=== PATIENT | male | born 1975 | race Caucasian/White ===

== ENCOUNTER 2017-08-06 11:48 | Emergency (ER) | payer OTHER ==
[~2017-08-06] VITALS: Ht 180.3 cm; Wt 158.8 kg
[~2017-08-06 11:48] MED LIST: ACCUPRIL40 MG; ACETAMINOPHEN-1 EAC1 PO; ADULT LOW DOSE81 MG PO; ADVAIR 250-501 EACH; ADVAIR 250-501 EACH INH; ALBUTEROL INH; AMITRIPTYLINE H25 M2 PO; AMLODIPINE PO; AMOXICILLIN 50500 MG PO; AMOXICILLIN500 M1 PO; APAP650 PO; AUGMENTIN 875-1 EACH PO; AZITHROMYCIN 2250 MG PO; BACTRIM DS TAB1 EACH PO; CELEBREX; CIPROFLOXACIN500 M1 PO; COLACE100 MG PO; CRESTOR5 MG; FLAGYL500 MG PO; FLEXERIL PO; FUROSEMIDE 40 M40 M1; GLUCOPHAGE1000 MG PO; GRALISE600 MG PO; HUMALOG100 UNIT/1 SUBQ; HUMALOG100 UNIT/2; HYDROCHLOROTHIA25 M2 PO; HYDROCODONE-AP1 EAC6 PO; HYDROCODONE-APA1 TA1 PO; HYDROCORTISONE30 G9 RECTAL; IBUPROFEN 800800 M1 PO; IBUPROFEN 800800 MG PO; JANUMET 50-1,01 EACH PO; KEFLEX500 MG PO; LANTUS100 UNIT/M SUBQ; LASIX 20 MG TAB20 MG PO; LASIX PO; LEVEMIR100 UNIT/1 SUBQ; LIPITOR10 MG PO; LISINOPRIL-HCT1 EAC1 PO; LISINOPRIL40 MG PO; LISINOPRIL5 MG PO; LOPRESSOR; LOVASTAT40 PO; MEDROLDOSEPACK PO; MELATONIN1 MG PO; METFORMIN HCL500 MG PO; METFORMIN PO; NEURONTIN 400400 M1 PO; NOHOMEMEDICATIONS; NORCO 5-325 TA1 EACH PO; NORVASC10 MG; NOVOLOG100 UNIT/1 SUBQ; OXYCODONE HCL15 MG; PENICILLIN VK500 M1; PENICILLIN VK500 M1 PO; PENICILLIN VK500 MG PO; PERCOCET 5-3251 EACH PO; PERCOCET PO; PERIDEX 0.12%473 M1 SSP; PRINIVIL; PROVENTIL IN; RECTIV30 GM RC; SIMVASTATIN20 MG; SINGULAIR 10 MG10 M1; SPIRIVA; SYMBICORT160 MCG/4.; TESSALON200 MG PO; TOPROL XL200 MG; TOPROL XL25 MG PO; TOPROL XL50 MG PO; TRAMADOL 50 MG50 MG PO; VENTOLIN HFA 1818 GM INH; VENTOLIN17 GM INH; VICODIN 5-5001 EACH PO; ZANAFLEX4 MG PO
[2017-08-06 12:17] LABS: ABSOLUTE EOSINOPHILS 0.3 thou/uL (0.0-0.7); ABSOLUTE LYMPHOCYTES 2.2 thou/uL (0.8-5.3); ABSOLUTE MONOCYTES 0.2 thou/uL (0.0-1.2); ABSOLUTE NEUTROPHILS 3.5 thou/uL (1.6-8.1); BASOPHILS 0.4 %; HEMOGLOBIN 12.8 gm/dL (14.0-18.0); LYMPHOCYTES 35.2 %; MCH 28.1 pg (26.0-34.0); MCHC 32.9 g/dL (28.0-37.0); MCV 85.3 fL (80.0-100.0); MONOCYTES 3.9 %; MPV 9.2 fl. (7.2-11.1); NUCLEATED RBCS 0 /100WBC; PLATELET COUNT* 118 thou/uL (150-400); POLYS 55.5 %; RBC 4.56 mil/uL (4.50-6.00); RDW-CV 14.5 % (10.5-14.5); WBC 6.4 thou/uL (4.0-11.0)
[2017-08-06 12:21] LABS: ANION GAP 7 mmol/L (7-16); BUN 11 mg/dL (7-18); CALCIUM 8.3 mg/dL (8.5-10.1); CHLORIDE 96 mmol/L (98-107); CO2 31 mmol/L (21-32); CREATININE 1.2 mg/dL (0.6-1.3); GLUCOSE 367 mg/dL (70-99); POTASSIUM 4.6 mmol/L (3.5-5.1); SODIUM 134 mmol/L (136-145)
[2017-08-06 12:32] LABS: ALBUMIN 2.9 g/dL (3.4-5.0); ALKALINE PHOSPHATASE 89 U/L (46-116); LIPASE 165 U/L (73-393); NT-PRO BRAIN NAT PEPTIDE 124 pg/mL (<300); SGOT 35 U/L (15-37); SGPT 34 U/L (30-65); TOTAL BILIRUBIN 0.2 mg/dL (<0.1-1.0); TOTAL PROTEIN 6.5 g/dL (6.4-8.2); TROPONIN-I LEVEL <0.06 ng/mL (<0.06)
[2017-08-06 14:07] VITALS: BP 112/55
--- NOTE | 2017-08-06 17:31 | EKG ---
[place] [address] ELECTROCARDIOGRAM REPORT Name: MELISA HERMAN Room: [facility] [id number] Admission: 08/06/17 Attend Phys: Discharge: 08/06/17 Date of : 71 Report #: [id number] THIS REPORT FOR: //name// [facility] ED Test Date: 2017-08-06 Test Time: 12:15:31 Pat Name: MELISA HERMAN Department: Room: Gender: M Knuckler: : 1975 Requested By: Dejan Salcedo Order Number: [id number] MD: Axel Theodore Measurements Intervals [place] Rate: 76 P: 46 MN: 137 QRS: 20 QRSD: 110 T: 41 QT: 398 QTc: 448 Interpretive Statements Sinus rhythm Compared to ECG 01/02/2016 12:01:06 no change Electronically Signed On 08-06-2017 17:31:12 WEIGHER PACKING by Axel Theodore [email or web address] <ELECTRONICALLY SIGNED> By: Axel Theodore MD, [facility] 08/06/17 1731 1215 1215 Axel Theodore MD, FACC /EPI
== END 2017-08-06 14:08 | disposition home or self-care (01) ==
LOC: M.ERS 11:48
PROVIDERS: Emergency Medicine
DX: T40.2X1A Poisoning by other opioids, accidental (unintentional), initial encounter (principal); T38.3X1A Poisoning by insulin and oral hypoglycemic [antidiabetic] drugs, accidental (unintentional), initial encounter; K21.9 Gastro-esophageal reflux disease without esophagitis; J45.909 Unspecified asthma, uncomplicated; M19.90 Unspecified osteoarthritis, unspecified site; J44.9 Chronic obstructive pulmonary disease, unspecified; E11.40 Type 2 diabetes mellitus with diabetic neuropathy, unspecified; F17.210 Nicotine dependence, cigarettes, uncomplicated; Z79.4 Long term (current) use of insulin; Y92.89 Other specified places as the place of occurrence of the external cause

== ENCOUNTER → 2017-08-23 | Outpatient (CLI) | payer OTHER ==
[~2017-08-23] MED LIST changes: +ERYTHROMYCIN250 MG PO; +NABUMETONE 750750 M1 PO; +TRESIBA FL100 UNIT/1 SUBQ; +VICTOZA0.6 MG/0.1 SUBQ
== END ==
LOC: M.RAD 13:48
DX: M25.462 Effusion, left knee (principal)

== ENCOUNTER → 2017-10-06 | Outpatient (CLI) | payer OTHER | LOC: M.ULTRA 15:00 | DX: I73.9 Peripheral vascular disease, unspecified (principal); E11.65 Type 2 diabetes mellitus with hyperglycemia; I10 Essential (primary) hypertension; E78.5 Hyperlipidemia, unspecified ==

== ENCOUNTER 2018-01-11 18:46 | Inpatient (IN) | payer OTHER, MEDICAID ==
[~2018-01-11] VITALS: Ht 180.3 cm; Wt 138.3 kg
[~2018-01-11 18:46] MED LIST changes: -ERYTHROMYCIN250 MG PO; -NABUMETONE 750750 M1 PO; -TRESIBA FL100 UNIT/1 SUBQ; -VICTOZA0.6 MG/0.1 SUBQ
[2018-01-11 18:53] VITALS: BP 111/74
[2018-01-11] MEDS ORDERED: VICTOZA0.6 MG/0.1 SUBQ (18:58)
[2018-01-11] MEDS ORDERED: TRESIBA FL100 UNIT/1 SUBQ (18:59)
[2018-01-11 19:23] LABS: ABSOLUTE EOSINOPHILS 0.3 thou/uL (0.0-0.7); ABSOLUTE LYMPHOCYTES 2.4 thou/uL (0.8-5.3); ABSOLUTE MONOCYTES 0.4 thou/uL (0.0-1.2); ABSOLUTE NEUTROPHILS 4.8 thou/uL (1.6-8.1); BASOPHILS 0.6 %; EOSINOPHILS 3.7 %; HEMATOCRIT 40.5 % (42.0-52.0); HEMOGLOBIN 13.4 gm/dL (14.0-18.0); LYMPHOCYTES 30.2 %; MCH 27.7 pg (26.0-34.0); MCHC 33.1 g/dL (28.0-37.0); MCV 83.7 fL (80.0-100.0); MONOCYTES 4.7 %; MPV 8.5 fl. (7.2-11.1); NUCLEATED RBCS 0 /100WBC; PLATELET COUNT* 176 thou/uL (150-400); POLYS 60.8 %; RBC 4.84 mil/uL (4.50-6.00); RDW-CV 14.6 % (10.5-14.5); WBC 7.8 thou/uL (4.0-11.0)
[2018-01-11 19:44] LABS: ANION GAP 2 mmol/L (7-16); BUN 14 mg/dL (7-18); CALCIUM 8.8 mg/dL (8.5-10.1); CHLORIDE 94 mmol/L (98-107); CO2 34 mmol/L (21-32); CREATININE 1.1 mg/dL (0.6-1.3); GLUCOSE 206 mg/dL (70-99); SODIUM 130 mmol/L (136-145)
[2018-01-11 19:58] LABS: ALKALINE PHOSPHATASE 82 U/L (46-116); AMYLASE 25 U/L (25-115); CK-MB MASS 0.7 ng/mL (<0.5-3.6); LIPASE 175 U/L (73-393); SGOT 23 U/L (15-37); SGPT 26 U/L (30-65); TOTAL BILIRUBIN 0.4 mg/dL (<0.1-1.0); TOTAL PROTEIN 7.2 g/dL (6.4-8.2); TROPONIN-I LEVEL <0.06 ng/mL (<0.06)
[2018-01-11 20:52] LABS: URINE BILIRUBIN NEGATIVE (Negative); URINE BLOOD NEGATIVE (Negative); URINE CLARITY CLEAR; URINE COLOR YELLOW; URINE GLUCOSE-RANDOM NEGATIVE (Negative); URINE KETONES NEGATIVE (Negative); URINE LEUKOCYTES-REFLEX NEGATIVE (Negative); URINE NITRITE-REFLEX NEGATIVE (Negative); URINE PROTEIN NEGATIVE (Negative); URINE SPECIFIC GRAVITY <= 1.005 (1.005-1.030); URINE UROBILINOGEN 0.2 E.U./dl (0.2-1.0)
--- NOTE | 2018-01-11 22:20 | NUR ---
RESIDENT TO EVALUATE
[2018-01-11 23:30] VITALS: BP 130/71
--- NOTE | 2018-01-11 23:30 | NUR ---
PATIENT ARRIVED ON UNIT AT 2320. TRANSFERED TO UNIT BED WITH STANDBY ASSIST. ORIENTED TO UNIT. VITAL SIGNS STABLE ON 2 LITERS OF OXYGEN. ASSESSMENT COMPLETE CHARTED. NURSING WILL CONTINUE TO MONITOR.
[2018-01-11 23:33] VITALS: BP 157/98
--- NOTE | 2018-01-12 04:34 | NUR ---
PATIENT REMAINS ALERT AND ORIENTED X4 THROUGHOUT SHIFT. VITAL SIGNS STABLE ON 2 LITERS OF OXYGEN PER NASAL CANULA. IV PATENT IN THE RIGHT AC INFUSING AT 50 ML/HR PER ORDERS. MAINTAINED NPO STATUS SINCE MIDNIGHT. REPOSITIONING SELF IN BED. TRANSFERS WITH STANDBY ASSIST TO THE RESTROOM. PAIN MANAGED WITH IV MEDICATION. DENIES NAUSEA. HOURLY ROUNDING COMPLETE. FALL PRECAUTIONS IN PLACE. CALL LIGHT WITHIN REACH. NURSING WILL CONTINUE TO MONITOR.
[2018-01-12 04:42] LABS: ABSOLUTE EOSINOPHILS 0.3 thou/uL (0.0-0.7); ABSOLUTE LYMPHOCYTES 2.5 thou/uL (0.8-5.3); ABSOLUTE MONOCYTES 0.4 thou/uL (0.0-1.2); ABSOLUTE NEUTROPHILS 4.8 thou/uL (1.6-8.1); BASOPHILS 0.5 %; HEMATOCRIT 39.6 % (42.0-52.0); HEMOGLOBIN 13.1 gm/dL (14.0-18.0); LYMPHOCYTES 30.8 %; MCH 27.7 pg (26.0-34.0); MCHC 33.1 g/dL (28.0-37.0); MCV 83.8 fL (80.0-100.0); MONOCYTES 4.9 %; NUCLEATED RBCS 0 /100WBC; PLATELET COUNT* 160 thou/uL (150-400); POLYS 59.8 %; RBC 4.73 mil/uL (4.50-6.00); WBC 8.1 thou/uL (4.0-11.0)
[2018-01-12 04:57] LABS: CALCIUM 8.2 mg/dL (8.5-10.1); CREATININE 1.1 mg/dL (0.6-1.3); POTASSIUM 4.4 mmol/L (3.5-5.1)
[2018-01-12 05:06] LABS: TOTAL BILIRUBIN 0.2 mg/dL (<0.1-1.0); TOTAL PROTEIN 6.4 g/dL (6.4-8.2)
[2018-01-12 09:15] VITALS: BP 148/88
[2018-01-12 10:26] LABS: CALCIUM 8.5 mg/dL (8.5-10.1); CREATININE 1.1 mg/dL (0.6-1.3); MAGNESIUM 1.4 mg/dL (1.8-2.4); POTASSIUM 4.3 mmol/L (3.5-5.1)
--- NOTE | 2018-01-12 11:16 | NUR ---
Nutrition: Pt assessed for Consult received for "wt change." PMHx: DM II, COPD, HTN, GERD. Admitted with abd pain. RX: insulin, linagliptin. Labs: BG 180, alb 3, Na 133. NPO. Pt not in room at time of visit, 11:00. 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 Noted, per [employer], that he has weighed ~340# for the past two yrs. Today's wt is 305#. Questioning accuracy of today's wt. Please reweigh for accurate wt. Mild risk. RD to follow up on wt, diet advancement, labs 01/14/18.
--- NOTE | 2018-01-12 12:46 | EKG ---
[place] [address] ELECTROCARDIOGRAM REPORT Name: MELISA HERMAN Room: [address] IN [facility]#: [id number] Admission: 01/11/18 Attend Phys: Gayathri Venegsa MD Discharge: Date of : 71 Report #: [id number] THIS REPORT FOR: //name// [facility] ED Test Date: 2018-01-11 Test Time: 19:28:20 Pat Name: MELISA HERMAN Department: Room: Gender: M [employer] Member: JEB : 1975 Requested By: Rebecca Ervin Order Number: [id number] MD: Axel Theodore Measurements Intervals [place] Rate: 88 P: 46 ND: 134 QRS: 32 QRSD: 105 T: 53 QT: 378 QTc: 458 Interpretive Statements Sinus rhythm Compared to ECG 08/06/2017 12:15:31 No significant changes Electronically Signed On 01-12-2018 12:46:04 CDT by Axel Theodore [email or web address] <ELECTRONICALLY SIGNED> By: Axel Theodore MD, [facility] 01/12/18 1246 1928 27 Axel Theodore MD, FACC /EPI
--- NOTE | 2018-01-12 16:46 | NUR ---
ATTEMPTED TO SEE PT. HE WAS OUT OF ROOM FOR TEST. WILL SEE IN AM.
[2018-01-12 16:57] VITALS: BP 129/72
--- NOTE | 2018-01-12 17:10 | NUR ---
ASSUMED CARE OF PATIENT AFTER MORNING REPORT AT 0720. ALERT AND ORIENTED X4.ASSESSMENT COMPLETED AND CHARTED. VSS ON 2 LITERS 02. PATIENT HAS FREQUENT COMPLAINTS OF PAIN RATED FROM 7 TO 10. NO COMPLAINTS OF NAUSEA OR SOA THIS SHIFT. PATIENT OBSERVED RESTING COMFORTABLY IN BED UPON HOURLY ROUNDS. PATIENT COMPLETED A SMALL BOWEL SERIES THIS AFTERNOON AND ADVNACED TO FULL LIQUID DIET, TOLERATING DIET WELL. HOURLY ROUNDS MAINTAINED, CALL LIGHT IS WITHIN REACH, NURSING WILL CONTINUE TO MONITOR.
[2018-01-12 19:40] VITALS: BP 104/51
[2018-01-13 04:30] LABS: HEMATOCRIT 35.9 % (42.0-52.0); HEMOGLOBIN 11.8 gm/dL (14.0-18.0); MCH 27.8 pg (26.0-34.0); MCHC 32.9 g/dL (28.0-37.0); MCV 84.5 fL (80.0-100.0); RBC 4.25 mil/uL (4.50-6.00); RDW-CV 15.3 % (10.5-14.5); WBC 10.3 thou/uL (4.0-11.0)
--- NOTE | 2018-01-13 04:48 | NUR ---
RESTED WELL THROUGHOUT HOURLY ROUNDS, CONITINUE TO C/O ABD PAIN DENIES . UP WALKING IN HALLWAY. BLOOD GLUCOSE 170 INSULIN GIVEN PRESCRIBED. DISCUSSED PLAN OF CARE PT AGREEABLE AND VERBALIZED UNDERSTANDING.
--- NOTE | 2018-01-13 05:36 | NUR ---
AGREE WITH ALL CHARTING BY NATASHA OLMEDO.
[2018-01-13 05:49] LABS: ALBUMIN 2.9 g/dL (3.4-5.0); CALCIUM 8.5 mg/dL (8.5-10.1); CREATININE 1.5 mg/dL (0.6-1.3); MAGNESIUM 1.7 mg/dL (1.8-2.4); PHOSPHORUS* 5.6 mg/dL (2.5-4.9); POTASSIUM 4.4 mmol/L (3.5-5.1); TOTAL BILIRUBIN 0.3 mg/dL (<0.1-1.0); TOTAL PROTEIN 6.1 g/dL (6.4-8.2)
[2018-01-13 09:37] VITALS: BP 103/67
--- NOTE | 2018-01-13 15:54 | NUR ---
PT.UP IN WC IN ROOM. ALERT AND ORIENTED. STATED HE LIVES BY HIMSELF. HIS MOM LIVES IN SAME APT.COMPLEX. SHE AND EXTENDED FAMILY IS SUPPORTIVE. HE HAS O2 AT HOME. NORMALLY USES IT AT NIGHT WITH HIS CPAP. HE SAID HE IS INDEPENDENT WITH ADLS,ETC. ABLE TO COOK,DRIVE,ETC. HE JUST WANTS TO FIND OUT WHAT IS CAUSING HIS PAIN. CM TO BE AVAILABLE NEEDED.
[2018-01-13 16:00] VITALS: BP 110/69
[2018-01-13 16:40] VITALS: BP 110/69
[2018-01-13] MEDS ORDERED: ERYTHROMYCIN250 MG PO (17:04)
--- NOTE | 2018-01-13 17:18 | NUR ---
ASSUMED CARE OF PATIENT AFTER MORNING REPORT. ALERT AND ORIENTED X4. ASSESSMENT COMPLETED AND CHARTED. VSS ON ROOM AIR WITH 2 LITERS 02 IF NEEDED. VSS ON ROOM AIR, PPATIENT WAS NOT WEARING HIS 02. NO COMPLAINTS OF NAUSEA OR SOA. PAIN HAS BEEN MANAGED WITH PAIN MEDICATION. PATIENT CLEARED FOR DISCHARGE AFTER A GASTRIC EMPTYING STUDY RESULTS CAME BACK OK. PATIENT DISCHARGED AT 1715, ALL PERSONAL BELONGINGS, PRESCRIPTIONS AND DISCHARGE INFORMATION SENT WITH PATIENT.
== END 2018-01-13 17:15 | disposition home or self-care (01) | DRG 73 ==
LOC: M.ERS 18:46 → M.ORTHSURG 22:37 → M.TBA-ER 22:37 → M.ORTHSURG 23:48
PROVIDERS: Internal Medicine; Nurse Practitioner Family; ADMIT Internal Medicine
DX: E11.43 Type 2 diabetes mellitus with diabetic autonomic (poly)neuropathy (principal); N17.0 Acute kidney failure with tubular necrosis; E87.1 Hypo-osmolality and hyponatremia; Z68.41 Body mass index [BMI] 40.0-44.9, adult; K31.84 Gastroparesis; E66.01 Morbid (severe) obesity due to excess calories; M19.90 Unspecified osteoarthritis, unspecified site; J44.9 Chronic obstructive pulmonary disease, unspecified; E11.22 Type 2 diabetes mellitus with diabetic chronic kidney disease; K21.9 Gastro-esophageal reflux disease without esophagitis; I12.9 Hypertensive chronic kidney disease with stage 1 through stage 4 chronic kidney disease, or unspecified chronic kidney disease; J32.8 Other chronic sinusitis; G47.33 Obstructive sleep apnea (adult) (pediatric); F17.210 Nicotine dependence, cigarettes, uncomplicated; N18.3 Chronic kidney disease, stage 3 (moderate); Z82.49 Family history of ischemic heart disease and other diseases of the circulatory system; Z83.6 Family history of other diseases of the respiratory system; Z84.1 Family history of disorders of kidney and ureter

== ENCOUNTER 2018-02-03 14:26 | Emergency (ER) | payer OTHER, MEDICAID ==
[~2018-02-03] VITALS: Ht 180.3 cm; Wt 149.7 kg
[~2018-02-03 14:26] MED LIST changes: +ERYTHROMYCIN250 MG PO; +TRESIBA FL100 UNIT/1 SUBQ; +VICTOZA0.6 MG/0.1 SUBQ
[2018-02-03] MEDS ORDERED: NABUMETONE 750750 M1 PO (16:22)
[2018-02-03 17:05] VITALS: BP 175/81
== END 2018-02-03 17:06 | disposition home or self-care (01) ==
LOC: M.ERS 14:26
DX: M25.571 Pain in right ankle and joints of right foot (principal); M79.671 Pain in right foot; J44.9 Chronic obstructive pulmonary disease, unspecified; G47.30 Sleep apnea, unspecified; E11.40 Type 2 diabetes mellitus with diabetic neuropathy, unspecified; K21.9 Gastro-esophageal reflux disease without esophagitis; G25.81 Restless legs syndrome; Z98.890 Other specified postprocedural states; F17.210 Nicotine dependence, cigarettes, uncomplicated; Z79.4 Long term (current) use of insulin

== ENCOUNTER 2018-05-16 02:44 | Emergency (ER) | payer OTHER, MEDICAID ==
[~2018-05-16] VITALS: Ht 180.3 cm; Wt 152.9 kg
[~2018-05-16 02:44] MED LIST changes: +NABUMETONE 750750 M1 PO
[2018-05-16 03:20] LABS: HEMOGLOBIN 13.1 gm/dL (14.0-18.0); NUCLEATED RBCS 0 /100WBC
[2018-05-16 03:22] LABS: ABSOLUTE MONOCYTES 0.5 thou/uL (0.0-1.2); MONOCYTES 5.3 %
[2018-05-16 03:26] LABS: ABSOLUTE BASOPHILS 0.1 thou/uL (0.0-0.2); ABSOLUTE EOSINOPHILS 0.2 thou/uL (0.0-0.7); ABSOLUTE LYMPHOCYTES 2.9 thou/uL (0.8-5.3); ABSOLUTE NEUTROPHILS 5.6 thou/uL (1.6-8.1); BASOPHILS 0.8 %; EOSINOPHILS 2.5 %; HEMATOCRIT 39.2 % (42.0-52.0); LYMPHOCYTES 31.1 %; MCH 28.1 pg (26.0-34.0); MCHC 33.3 g/dL (28.0-37.0); MCV 84.4 fL (80.0-100.0); MPV 9.2 fl. (7.2-11.1); PLATELET COUNT* 140 thou/uL (150-400); POLYS 60.3 %; RBC 4.65 mil/uL (4.50-6.00); RDW-CV 14.7 % (10.5-14.5); WBC 9.2 thou/uL (4.0-11.0)
[2018-05-16 03:27] LABS: CALCIUM 8.7 mg/dL (8.5-10.1); CREATININE 1.2 mg/dL (0.6-1.3); POTASSIUM 3.4 mmol/L (3.5-5.1)
[2018-05-16 03:38] LABS: ALBUMIN 3.1 g/dL (3.4-5.0); TOTAL BILIRUBIN 0.3 mg/dL (<0.1-1.0)
[2018-05-16 04:25] VITALS: BP 139/78
== END 2018-05-16 04:25 | disposition home or self-care (01) ==
LOC: M.ERS 02:44
PROVIDERS: Family Medicine
DX: E11.40 Type 2 diabetes mellitus with diabetic neuropathy, unspecified (principal); J44.9 Chronic obstructive pulmonary disease, unspecified; G47.30 Sleep apnea, unspecified; M19.90 Unspecified osteoarthritis, unspecified site; K21.9 Gastro-esophageal reflux disease without esophagitis; G25.81 Restless legs syndrome; Z79.4 Long term (current) use of insulin

== ENCOUNTER → 2021-03-07 | Outpatient (CLI) | payer OTHER, MEDICAID ==
[~2021-03-07] VITALS: Ht 180.3 cm; Wt 149.7 kg
[~2021-03-07] MED LIST changes: +FUROSEMIDE 20 M20 MG PO; +GLUMETZA1000 M1 PO; +KLOR-CON M2020 MEQ PO; +NEURONTIN800 MG PO; +NOVOLOG100 UNIT/M SUBQ; +OXYCONTIN15 MG PO; +SIMVASTATIN80 MG PO; +ZOCOR 20 MG TAB20 M1 PO
[2021-03-07 11:45] VITALS: BP 113/68; BP 117/65
[2021-03-07 11:49] LABS: HEMATOCRIT 37.4 % (42.0-52.0); HEMOGLOBIN 12.5 gm/dL (14.0-18.0); MCH 27.9 pg (26.0-34.0); MCHC 33.4 g/dL (28.0-37.0); MCV 83.7 fL (80.0-100.0); MPV 8.8 fl. (7.2-11.1); RBC 4.47 mil/uL (4.50-6.00); WBC 9.6 thou/uL (4.0-11.0)
[2021-03-07 11:59] LABS: CALCIUM 9.2 mg/dL (8.5-10.1); CREATININE 1.4 mg/dL (0.6-1.3); POTASSIUM 5.6 mmol/L (3.5-5.1)
[2021-03-07 12:01] LABS: PROTIME 10.9 Seconds (9.20-11.50)
[2021-03-07 14:29] VITALS: BP 125/67
[2021-03-07 14:43] VITALS: BP 119/67
[2021-03-07 14:56] VITALS: BP 134/78
== END | disposition home or self-care (01) ==
LOC: M.INT 10:21
PROVIDERS: Radiology Vascular & Interventional Radiology; ATTEND Radiology Radiation Oncology
DX: Z43.1 Encounter for attention to gastrostomy (principal); C10.1 Malignant neoplasm of anterior surface of epiglottis; I10 Essential (primary) hypertension; E11.9 Type 2 diabetes mellitus without complications; J44.9 Chronic obstructive pulmonary disease, unspecified; M19.90 Unspecified osteoarthritis, unspecified site; K21.9 Gastro-esophageal reflux disease without esophagitis; E66.9 Obesity, unspecified; F17.210 Nicotine dependence, cigarettes, uncomplicated; Z98.890 Other specified postprocedural states; Z79.899 Other long term (current) drug therapy; Z79.4 Long term (current) use of insulin

== ENCOUNTER 2021-04-14 16:22 | Observation (INO) | payer OTHER, MEDICAID ==
[~2021-04-14] VITALS: Ht 180.3 cm; Wt 141.1 kg
[2021-04-14 16:40] VITALS: BP 97/58
[2021-04-14 17:16] LABS: ABSOLUTE LYMPHOCYTES 0.5 thou/uL (0.8-5.3); ABSOLUTE MONOCYTES 0.3 thou/uL (0.0-1.2); ABSOLUTE NEUTROPHILS 4.5 thou/uL (1.6-8.1); BASOPHILS 0.2 %; EOSINOPHILS 0.2 %; HEMATOCRIT 26.3 % (42.0-52.0); HEMOGLOBIN 8.8 gm/dL (14.0-18.0); LYMPHOCYTES 9.5 %; MCH 28.2 pg (26.0-34.0); MCHC 33.4 g/dL (28.0-37.0); MCV 84.7 fL (80.0-100.0); MPV 8.4 fl. (7.2-11.1); NUCLEATED RBCS 0 /100WBC; PLATELET COUNT* 84 thou/uL (150-400); POLYS 84.1 %; RDW-CV 16.2 % (10.5-14.5); WBC 5.4 thou/uL (4.0-11.0)
[2021-04-14 17:25] LABS: CALCIUM 7.4 mg/dL (8.5-10.1); CREATININE 2.2 mg/dL (0.6-1.3); POTASSIUM 4.1 mmol/L (3.5-5.1)
[2021-04-14 17:29] LABS: ALBUMIN 2.4 g/dL (3.4-5.0); TOTAL BILIRUBIN 0.4 mg/dL (<0.1-1.0); TOTAL PROTEIN 6.7 g/dL (6.4-8.2)
[2021-04-14 19:29] VITALS: BP 110/54
[2021-04-14 20:22] VITALS: BP 118/53
[2021-04-14] MEDS ORDERED: TRAMADOL 50 MG50 MG PO (22:53)
[2021-04-15 05:12] LABS: URINE BILIRUBIN NEGATIVE (Negative); URINE BLOOD NEGATIVE (Negative); URINE CLARITY CLEAR; URINE COLOR YELLOW; URINE GLUCOSE-RANDOM NEGATIVE (Negative); URINE KETONES TRACE (Negative); URINE LEUKOCYTES-REFLEX NEGATIVE (Negative); URINE NITRITE-REFLEX NEGATIVE (Negative); URINE PROTEIN 2+ (Negative); URINE SPECIFIC GRAVITY 1.025 (1.005-1.030); URINE UROBILINOGEN 0.2 E.U./dl (0.2-1.0)
[2021-04-15 05:21] LABS: AMORPHOUS URATES Few /LPF (None Seen); BACTERIA-REFLEX 1-9 Few /HPF (None Seen); CASTS None Seen /LPF (None Seen); MUCUS 4-6 Moderate strn/LPF (None Seen); SQUAMOUS 0-3 Few /LPF (0-3); URINE RBC 0-2 Rare /HPF (0-2); URINE WBC-REFLEX 0-5 Rare /HPF (0-5)
[2021-04-15 08:00] VITALS: BP 127/73
--- NOTE | 2021-04-15 09:53 | EKG ---
[place] [address] ELECTROCARDIOGRAM REPORT Name: MELISA HERMAN Room: [address] ADM IN M.R.#: [id number] Admission: 04/14/21 Attend Phys: Mauro Young Discharge: Date of : 71 Date of Service: 04/14/21 1744 Report #: [id number] THIS REPORT FOR: //name// [facility] ED Test Date: 2021-04-14 Test Time: 17:44:18 Pat Name: MELISA HERMAN Department: Room: [facility] Gender: M [employer]: SHARMA : 1975 Requested By: Cindy Manzanares Order Number: [id number] MD: Brice Novak Measurements Intervals [place] Rate: 81 P: 54 [place]: 151 QRS: 36 QRSD: 100 T: 62 QT: 400 QTc: 465 Interpretive Statements Sinus rhythm Low voltage, precordial leads Compared to ECG 01/11/2018 19:28:20 Low QRS voltage now present Electronically Signed On 04-15-2021 9:52:44 CDT by Brice Novak [email or web address] <ELECTRONICALLY SIGNED> By: Brice Novak MD, FACC 04/15/21 0952 1744 1744 Brice Novak MD, FACC /EPI
[2021-04-15 09:55] LABS: CALCIUM 7.3 mg/dL (8.5-10.1); POTASSIUM 4.4 mmol/L (3.5-5.1)
[2021-04-15 12:26] VITALS: BP 127/73
== END 2021-04-15 12:35 | disposition home or self-care (01) ==
LOC: M.ERS 16:22 → M.TBA-ER 18:59 → M.3W 18:59
PROVIDERS: Family Medicine; Nurse Practitioner Family; ADMIT Internal Medicine; ATTEND Internal Medicine
DX: R11.2 Nausea with vomiting, unspecified (principal); R19.7 Diarrhea, unspecified; Z20.822 Contact with and (suspected) exposure to COVID-19; N17.9 Acute kidney failure, unspecified; E86.0 Dehydration; D64.9 Anemia, unspecified; D69.6 Thrombocytopenia, unspecified; E11.9 Type 2 diabetes mellitus without complications; I10 Essential (primary) hypertension; J44.9 Chronic obstructive pulmonary disease, unspecified; C14.0 Malignant neoplasm of pharynx, unspecified; K21.9 Gastro-esophageal reflux disease without esophagitis; M19.90 Unspecified osteoarthritis, unspecified site; G47.30 Sleep apnea, unspecified; F17.210 Nicotine dependence, cigarettes, uncomplicated; Z79.4 Long term (current) use of insulin; Z79.82 Long term (current) use of aspirin; Z79.899 Other long term (current) drug therapy

== ENCOUNTER 2021-08-18 18:08 | Emergency (ER) | payer OTHER, MEDICAID ==
[~2021-08-18] VITALS: Ht 180.3 cm; Wt 115.7 kg
[2021-08-18 20:45] VITALS: BP 127/73
== END 2021-08-18 20:45 | disposition left against medical advice (07) ==
LOC: M.ERS 18:08
DX: Z53.21 Procedure and treatment not carried out due to patient leaving prior to being seen by health care provider (principal)